=== PATIENT | male | born 2000 | race Caucasian/White ===

== ENCOUNTER 2021-10-29 21:08 | Inpatient (IN) | payer OTHER ==
[2021-10-29 22:33] VITALS: BMI 26.7
[2021-10-29] MEDS ORDERED: BISMUTH SUBSALICYLATE 524 MG/30 ML PO PRN (22:46)
[2021-10-29] MEDS ORDERED: IBUPROFEN 400 MG TABLET (FP) PO PRN (22:46)
[2021-10-29] MEDS ORDERED: MAGNESIUM HYDROX 2400MG/30ML ORAL SUSPENSION 30 ML CUP PO PRN (22:46)
[2021-10-29] MEDS ORDERED: MAGNESIUM CITRATE 300 ML BOTTLE PO PRN (22:46)
[2021-10-29] MEDS ORDERED: methaDONE HCL 10 MG TABLET (FOR DETOX USE ONLY) PO ONE (22:46)
[2021-10-29] MEDS ORDERED: cloNIDine HCL 0.1 MG TABLET PO PRN (22:46)
[2021-10-29] MEDS ORDERED: NICOTINE 10 MG CARTRIDGE (INHALER) IH PRN (22:46)
[2021-10-29] MEDS ORDERED: ONDANSETRON *ODT* 4 MG TABLET SL PRN (22:46)
[2021-10-29] MEDS ORDERED: MAG HYDROX/AL HYDROX/SIMETH 30 ML UNIT-DOSE CUP PO PRN (22:46)
[2021-10-29] MEDS ORDERED: LOPERAMIDE HCL 2 MG CAPSULE PO PRN (22:46)
[2021-10-29] MEDS ORDERED: ACETAMINOPHEN 325 MG TABLET (FP) PO PRN ×2 (22:46)
[2021-10-30] MEDS ORDERED: methaDONE HCL 10 MG TABLET (FOR DETOX USE ONLY) ONE ×2 (00:27→09:49)
[2021-10-30] MEDS ORDERED: guaiFENesin 200 MG/10 ML 10 ML UNIT-DOSE CUPS PO PRN (05:42)
[2021-10-30] MEDS ORDERED: hydrOXYzine PAMOATE 25 MG CAPSULE (FP) PO SCH (06:00)
[2021-10-30] MEDS: METHOCARBAMOL 500 MG TABLET PO PRN ×2 (10:29→18:13)
[2021-10-30] MEDS: diazePAM 5 MG TABLET PO PRN ×2 (10:29→18:14)
[2021-10-30] MEDS: PRENATAL VITAMINS W/ FOLIC ACID TABLET (FP) PO SCH (10:29)
[2021-10-30 10:56] LABS: HEMATOCRIT 38.5 % (35.4-49); HEMOGLOBIN 12.9 GM/dL (11.7-16.9); MCH 26.6 pg (25.7-33.7); MCHC 33.4 g/dl (32.0-35.9); MEAN CELL VOLUME 79.6 fl (80-96); PLATELET COUNT 322 10^3/uL (134-434); RBC 4.84 M/mm3 (4.00-5.60); RDW 14.8 % (11.9-15.9); WHITE BLOOD COUNT 7.7 K/mm3 (4.0-10.0)
[2021-10-30 11:03] LABS: CALCIUM 10.1 mg/dL (8.5-10.1)
[2021-10-30 11:04] LABS: ALBUMIN 3.8 g/dl (3.4-5.0); BLOOD UREA NITROGEN 8.7 mg/dL (7-18)
[2021-10-30 11:07] LABS: CREATININE 0.7 mg/dL (0.55-1.3)
[2021-10-30 11:08] LABS: TOT PROT 7.1 g/dl (6.4-8.2)
[2021-10-30 11:09] LABS: BILIRUBIN,TOTAL 0.4 mg/dL (0.2-1)
[2021-10-30] MEDS ORDERED: MELATONIN 5 MG TABLETS PO SCH (22:00)
[2021-10-30] MEDS: THIAMINE HCL 100 MG TABLET (FP) PO SCH (23:26)
[2021-10-30] MEDS: SUVOREXANT 10 MG TABLET PO PRN (23:54)
[2021-10-31] MEDS: diazePAM 5 MG TABLET PO PRN ×3 (05:58→22:14)
[2021-10-31] MEDS: METHOCARBAMOL 500 MG TABLET PO PRN ×2 (05:58→23:28)
[2021-10-31] MEDS ORDERED: methaDONE HCL 10 MG TABLET (FOR DETOX USE ONLY) PO ONE (10:00)
[2021-10-31] MEDS: PRENATAL VITAMINS W/ FOLIC ACID TABLET (FP) PO SCH (10:34)
[2021-10-31] MEDS: MENTHOL/PHENOL 1 EACH UD MM PRN ×2 (11:35→23:29)
[2021-10-31] MEDS: THIAMINE HCL 100 MG TABLET (FP) PO SCH (22:14)
[2021-10-31] MEDS: SUVOREXANT 10 MG TABLET PO PRN (22:16)
[2021-11-01] MEDS ORDERED: methaDONE HCL 10 MG TABLET (FOR DETOX USE ONLY) ONE (09:49)
[2021-11-01] MEDS: PRENATAL VITAMINS W/ FOLIC ACID TABLET (FP) PO SCH (10:18)
[2021-11-01] MEDS: METHOCARBAMOL 500 MG TABLET PO PRN (10:22)
[2021-11-01] MEDS: diazePAM 5 MG TABLET PO PRN (10:22)
[2021-11-01 13:57] VITALS: BP 129/52; PULSE 95; TEMP 97.8
[2021-11-02] MEDS ORDERED: methaDONE HCL 10 MG TABLET (FOR DETOX USE ONLY) PO ONE (10:00)
== END 2021-11-01 15:15 | disposition left against medical advice (07) | DRG 770 ==
LOC: YASAS 21:08 → Y6N 10-30 09:19
PROVIDERS: ADMIT Allergy & Immunology; ATTEND Allergy & Immunology
PROC: HZ2ZZZZ Detoxification Services for Substance Abuse Treatment (ICD-10-PCS; principal; 2021-10-30)
DX: F11.23 Opioid dependence with withdrawal (principal); F13.20 Sedative, hypnotic or anxiolytic dependence, uncomplicated; F12.20 Cannabis dependence, uncomplicated; F19.282 Other psychoactive substance dependence with psychoactive substance-induced sleep disorder; F39 Unspecified mood [affective] disorder; M54.50 Low back pain, unspecified; G89.29 Other chronic pain; Z62.810 Personal history of physical and sexual abuse in childhood; Z91.51 Personal history of suicidal behavior
CPT/HCPCS: 36415; 80053; 85027; 86780; 93005; 93010; C9803-CS; J0735; U0003; U0005

== ENCOUNTER 2021-12-07 10:03 | Inpatient (IN) | payer OTHER ==
[2021-12-07 10:42] VITALS: BMI 26.9
[2021-12-07] MEDS ORDERED: IBUPROFEN 400 MG TABLET (FP) PO PRN (12:34)
[2021-12-07] MEDS ORDERED: BENZOCAINE/MENTHOL (CHLORASEPTIC ) LOZENGE MM PRN (12:34)
[2021-12-07] MEDS ORDERED: BISMUTH SUBSALICYLATE 524 MG/30 ML PO PRN (12:34)
[2021-12-07] MEDS ORDERED: MAGNESIUM CITRATE 300 ML BOTTLE PO PRN (12:34)
[2021-12-07] MEDS ORDERED: NICOTINE 10 MG CARTRIDGE (INHALER) IH PRN (12:34)
[2021-12-07] MEDS ORDERED: ACETAMINOPHEN 325 MG TABLET (FP) PO PRN ×2 (12:34)
[2021-12-07] MEDS ORDERED: MAGNESIUM HYDROX 2400MG/30ML ORAL SUSPENSION 30 ML CUP PO PRN (12:34)
[2021-12-07] MEDS ORDERED: MAG HYDROX/AL HYDROX/SIMETH 30 ML UNIT-DOSE CUP PO PRN (12:34)
[2021-12-07] MEDS ORDERED: DICYCLOMINE HCL 10 MG CAPSULE PO PRN (12:34)
[2021-12-07] MEDS ORDERED: LOPERAMIDE HCL 2 MG CAPSULE PO PRN (12:34)
[2021-12-07] MEDS ORDERED: ONDANSETRON *ODT* 4 MG TABLET SL PRN (12:34)
[2021-12-07] MEDS ORDERED: cloNIDine HCL 0.1 MG TABLET PO PRN (12:34)
[2021-12-07] MEDS ORDERED: methaDONE HCL 10 MG TABLET (FOR DETOX USE ONLY) PO ONE (13:00)
[2021-12-07] MEDS: hydrOXYzine PAMOATE 25 MG CAPSULE (FP) PO SCH ×3 (13:23→22:36)
[2021-12-07] MEDS: diazePAM 5 MG TABLET PO PRN ×3 (13:24→22:38)
[2021-12-07] MEDS: METHOCARBAMOL 500 MG TABLET PO PRN ×2 (13:25→22:38)
[2021-12-07] MEDS ORDERED: MELATONIN 5 MG TABLETS PO SCH (22:00)
[2021-12-07] MEDS ORDERED: THIAMINE HCL 100 MG TABLET (FP) PO SCH (22:00)
[2021-12-08] MEDS: hydrOXYzine PAMOATE 25 MG CAPSULE (FP) PO SCH ×3 (07:25→15:05)
[2021-12-08 09:09] VITALS: TEMP 97.3
[2021-12-08] MEDS ORDERED: PRENATAL VITAMINS W/ FOLIC ACID TABLET (FP) PO SCH (10:00)
[2021-12-08] MEDS ORDERED: methaDONE HCL 10 MG TABLET (FOR DETOX USE ONLY) ONE (10:00)
[2021-12-08] MEDS: METHOCARBAMOL 500 MG TABLET PO PRN (10:12)
[2021-12-08 13:01] VITALS: BP 115/66; PULSE 54
[2021-12-08] MEDS ORDERED: SUVOREXANT 10 MG TABLET PO PRN (22:00)
[2021-12-09] MEDS ORDERED: methaDONE HCL 10 MG TABLET (FOR DETOX USE ONLY) PO ONE (10:00)
[2021-12-11] MEDS ORDERED: methaDONE HCL 10 MG TABLET (FOR DETOX USE ONLY) PO ONE (10:00)
== END 2021-12-08 15:17 | disposition left against medical advice (07) | DRG 770 ==
LOC: YASAS 10:03 → Y3N 12:39
PROVIDERS: ADMIT Allergy & Immunology; ATTEND Allergy & Immunology
PROC: HZ2ZZZZ Detoxification Services for Substance Abuse Treatment (ICD-10-PCS; principal; 2021-12-07)
DX: F11.23 Opioid dependence with withdrawal (principal); F13.20 Sedative, hypnotic or anxiolytic dependence, uncomplicated; F14.20 Cocaine dependence, uncomplicated; F12.20 Cannabis dependence, uncomplicated; F39 Unspecified mood [affective] disorder; F19.282 Other psychoactive substance dependence with psychoactive substance-induced sleep disorder; F19.24 Other psychoactive substance dependence with psychoactive substance-induced mood disorder; F51.05 Insomnia due to other mental disorder; M54.50 Low back pain, unspecified; G89.29 Other chronic pain; Z62.810 Personal history of physical and sexual abuse in childhood
CPT/HCPCS: 87811; C9803-CS; U0003; U0005